=== PATIENT | female | born 1945 | race Caucasian/White ===

== ENCOUNTER 2016-08-12 16:22 | Inpatient (IN) ==
[2016-08-12] MEDS ORDERED: MEPERIDINE 25 MG/1 ML VIAL IV PRN (16:42)
[2016-08-12] MEDS ORDERED: oxyCODONE/ACETAMINOPHEN 5-325 MG TABLET PO PRN (16:50)
[2016-08-12] MEDS: DEXTROSE 5% LACTATED RINGERS 1,000 ML IV SCH (18:03)
[2016-08-12 18:30] LABS: Basophils % 0.1 % (0.0-0.8); Hematocrit 36.4 VOL% (35.7-47.0); Hemoglobin 12.6 GM/DL (12.0-16.0); Immature Granulocytes % 1.1 %; Immature Granulocytes Absolute 0.17 #; Lymphocytes # 0.8 10*3/uL (1.4-4.0); Lymphocytes % 5.1 % (21.3-54.2); Mean Corpuscular HGB Conc 34.6 GM/DL (32-36); Mean Corpuscular Hemoglobin 33 PG (27-34); Mean Platelet Volume 10.5 FL (9.6-12.0); Monocytes # 0.8 10*3/uL (0.11-0.8); Monocytes % 5.3 % (1.7-12.7); Neutrophils # 13.4 10*3/uL (1.4-7.4); Neutrophils % 88.4 % (38.7-73.9); Platelet Count 186 T/CUMM (130-400); Red Blood Count 3.79 MC/CUMM (3.8-5.5); Red Cell Distribution Width 12.2 % (9.3-17.3); White Blood Count 15.2 T/CUMM (4-12)
[2016-08-12 18:53] LABS: Albumin 3.5 G/DL (3.4-5.0); Bilirubin,Total 0.4 MG/DL (0.2-1.0); Calcium 9.1 MG/DL (8.5-10.1); Osmolality,Calculated 276.1 MOS/KG (273-304); Potassium 4.3 MMOL/L (3.5-5.1); Total Protein 6.4 G/DL (6.4-8.3)
--- NOTE | 2016-08-12 19:12 | General Surgery Consult Note ---
Assessment and Plan - Time spent with patient Time spent with patient: Less than 30 minutes (1) Abscess of right genital labia Status: Acute Assessment and plan: Impression: 1. Right labial abscess 2. Cellulitis of the pubis secondary to 1 Plan: 1. Will add a couple of antibiotics to her at this time 2. Plan to take her to surgery tomorrow for drainage. Current Visit: Yes History of Present Illness Chief complaint: Labial abscess History of present illness: Ms. Vizcaino is a 70 year old female white who is not a diabetic and in general pretty good health who on Friday begin to develop some Mani for swelling in the right labial area. Is gotten progressively worse and now spreads up onto the pubis with some cellulitis present at this time. Marked swelling of the right labial with some tenderness in that area. Etiology of this unclear she does not recall any unusual stresses in this area of this dysuria or soiling going on at this time. She cannot relate this to an insect bite or any other cause at this time. At this point will go ahead and get her on some IV antibiotics planned regular surgery tomorrow and try to get this opened and drained to get this under control. Home Medications Medication Instructions Recorded Confirmed Type Losartan [Cozaar] 100 mg PO DAILY 08/12/16 08/12/16 History Lovastatin 20 mg PO DAILY 08/12/16 08/12/16 History cephALEXin [Cephalexin] 500 mg PO Q12HR 08/12/16 08/12/16 History prednisoLONE TAB [prednisoLONE Tab] 20 mg PO DAILY 08/12/16 08/12/16 History Allergies Allergy/AdvReac Type Severity Reaction Status Date / Time No Known Allergies Allergy Verified 08/12/16 16:33 Medical,Surgical,& Family Hx - Medical History Cardio: History of: Hypertension Neurology: History of: Migraine Endocrine: History of: Dyslipidemia, Thyroid Disorder Respiratory: History of: Pneumonia Musculoskeletal: History of: Musculoskeletal Problems (OA) - Surgical History HEENT Surgeries: Surgical HX of: Eye Surgery (right cataract removal), Tonsilectomy & Adenoidectomy Abdominal Surgeries: Surgical HX of: Colonoscopy, EGD Reproductive Surgeries: Surgical HX of;: Section, Hysterectomy Orthopedic Surgeries: Surgical HX of;: Total Knee Replacement (Left) - Family History Family History: Reports;: Family Cancer (sister-breast/ovarian,grandmother-colon ,), Family Diabetes (dad), Family Heart Disease (grandmother), Family Hypertension, Family Psychiatric Problems (mom-bipolar) - Social History Smoking Status: Never smoker Frequency of Alcohol Use: None Type of Drug Use: None 12 point system: reviewed and no additional remarkable complaints except as stated Exam - Constitutional Vitals: Period Temp Pulse Resp BP Sys/Brunner Pulse Ox Last 24 Hr 97.2 F 84 20 128/70 98 General appearance: mild distress - Head Head exam: Present: normal inspection - ENT ENT exam: Present: normal exam - Neck Neck exam: Present: normal inspection - Respiratory Respiratory exam: Present: clear to auscultation bilaterally, rales - Cardiovascular Cardiovascular exam: Present: RRR - GI/Abdominal GI/Abdominal exam: Present: hypoactive bowel sounds, soft, other (Right labial area with swelling present and tenderness and erythematous changes of bone to the pubis). Absent: distended, tenderness - Extremities Exam Extremities exam: Present: normal inspection - Back Exam Back exam: Present: normal inspection - Neurological Exam Neurological exam: Present: alert, oriented X3, CN II-XII intact - Skin Skin exam: Present: normal color, erythema (Of the pubis) Quality Measures - VTE Contraindication to Pharmacological VTE Prophylaxis: High Risk of Bleeding Results - Labs CBC & BMP: 08/12/16 18:13 08/12/16 18:13 Lab Results: I have reviewed the past 24 hour labs
[2016-08-12 19:18] LABS: Apearance,Urine Slightly Hazy (Clear); Bacteria,Urine Occasional /HPF (Few); Bilirubin,Urine Negative (Negative); Blood, Urine Small mg/dL (Negative); Glucose,Urine (UA) Negative (Negative); Ketones,Urine Negative (Negative); Nitrite,Urine Negative (Negative); Protein,Urine 30 MG/DL; RBC,Urine 2 /HPF (0-4); Squamous Epithelial Cell,Urine Occasional /HPF (0-10); Transitional Epi Cells,Urine Occasional /HPF (<1); Urine Color Yellow (Yellow); Urine Specific Gravity 1.019 (1.001-1.035); Urine Urobilinogen < 2.0 EU/DL (0.2-1.0); WBC,Urine 15 /HPF (0-6)
--- NOTE | 2016-08-12 19:31 | History and Physical Update ---
History and Physical Update - History and Physical H&P was reviewed, the patient examined and there: are no changes in the patients condition since last H&P was completed. - Dictation Physical: refer to scanned H&P - Physical Exam Mental Status: alert and oriented Heart: regular rate and rhythm Lung: clear to auscultation Abdomen: within normal limits Vitals: within normal limits History and Physical Changes: Pt admitted directly from the office with right labial abscess with extension of involvement of cellulitis and possible abscess into right lower abdomen for total area of involvement of ~13 cm diameter superiorly to inferiorly and ~9 cm diameter.
[2016-08-12] MEDS: metroNIDAZOLE INJ 500 MG in PREMIX 1 EACH IV SCH (19:49)
--- NOTE | 2016-08-12 21:09 | XRay Report ---
XR chest 1V portable Indication: Respiratory preoperative evaluation Comparison: None available Findings: The heart and mediastinum are normal in size and configuration. The pulmonary vascularity is normal in caliber. Lung volumes are increased with prominent bronchial markings. No lung infiltrates, effusions, pneumothorax or other abnormality is demonstrated. Impression: Chronic lung changes. No acute process. PROCEDURE INTERPRETED AT [facility] DEPARTMENT OF RADIOLOGY Final Report Signed by: Dr. Boris Rachel
[2016-08-12] MEDS: PIPERACILLIN/TAZOBACTAM 3,375 MG in SODIUM CHLORIDE 0.9% 100 ML IV SCH (21:27)
[2016-08-13] MEDS: metroNIDAZOLE INJ 500 MG in PREMIX 1 EACH IV SCH ×4 (01:44→22:35)
[2016-08-13] MEDS: PIPERACILLIN/TAZOBACTAM 3,375 MG in SODIUM CHLORIDE 0.9% 100 ML IV SCH ×4 (05:04→23:39)
[2016-08-13] MEDS ORDERED: BUPIVACAINE MPF 0.25% /EPI 30 ML VIAL ONE (06:45)
[2016-08-13] MEDS ORDERED: ceFAZolin 2,000 MG in SODIUM CHLORIDE 0.9% 100 ML IV ONE (07:00)
[2016-08-13 07:13] LABS: Basophils % 0.2 % (0.0-0.8); Eosinophils # 0.1 10*3/uL (0.0-0.87); Eosinophils % 0.5 % (0.00-10.9); Hematocrit 32.5 VOL% (35.7-47.0); Immature Granulocytes % 0.5 %; Immature Granulocytes Absolute 0.05 #; Lymphocytes # 1.6 10*3/uL (1.4-4.0); Mean Corpuscular HGB Conc 33.8 GM/DL (32-36); Mean Corpuscular Hemoglobin 32 PG (27-34); Mean Corpuscular Volume 94.2 FL (87-102); Mean Platelet Volume 10.7 FL (9.6-12.0); Monocytes # 0.7 10*3/uL (0.11-0.8); Monocytes % 7.1 % (1.7-12.7); Neutrophils # 7.5 10*3/uL (1.4-7.4); Neutrophils % 75.7 % (38.7-73.9); Platelet Count 159 T/CUMM (130-400); Red Blood Count 3.45 MC/CUMM (3.8-5.5); Red Cell Distribution Width 12.2 % (9.3-17.3); White Blood Count 9.9 T/CUMM (4-12)
[2016-08-13] MEDS ORDERED: ceFAZolin 1,000 MG VIAL ONE (07:15)
[2016-08-13] MEDS ORDERED: KETOROLAC 30 MG/1 ML VIAL ONE (07:23)
[2016-08-13] MEDS ORDERED: PROPOFOL 200 MG/20 ML VIAL IV ONE (07:23)
[2016-08-13] MEDS ORDERED: ONDANSETRON 4 MG/2 ML VIAL ONE (07:23)
[2016-08-13] MEDS ORDERED: LIDOCAINE 1% 5 ML VIAL ONE (07:23)
--- NOTE | 2016-08-13 07:44 | EKG Report ---
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
[2016-08-13] MEDS ORDERED: HYDROmorphone 2 MG/1 ML VIAL IV PRN (08:17)
[2016-08-13] MEDS ORDERED: ONDANSETRON 4 MG/2 ML VIAL IV PRN (08:17)
[2016-08-13] MEDS ORDERED: ACETAMINOPHEN 325 MG TABLET PO PRN (08:17)
[2016-08-13] MEDS ORDERED: BISACODYL 5 MG TABLET PO PRN (08:17)
--- NOTE | 2016-08-13 08:31 | Operative Note ---
Date of procedure: 08/13/16 Pre-op diagnosis: Right labial abscess Post-op diagnosis: other (Right labial abscess with extension into the suprapubic area) Procedure: Operative note: Preoperative diagnosis: Right labial abscess Postoperative diagnosis: Right labial abscess with abscess extension to the suprapubic area. Procedure: Excisional debridement and drainage of right labial abscess with drainage of suprapubic abscess and placement of drains Surgeon Dr. Davis Account Services Representative Daria Winter, ENG[employer] ACNP Anesthesia was general with local Brief history: 70-year-old white female who developed the onset of some swelling in the right labial area on Friday to progressively got worse and she has a large mass with some erythematous changes on to the suprapubic area. We elected to put her on IV antibiotics bring her surgery this morning for drainage. Procedure: With patient in the supine dorsal lithotomy position prepped and draped in a sterile fashion timeout and antibiotics completed we approach this area of the large swollen labia at this time. I infiltrated around it with some local anesthetic. I then took a knife and made an incision the labia as we went down we encountered some necrotic looking tissue and fatty tissue in this area but not a lot of purulence that we noted. Carefully dissected down through the subtenons tissue and then entered a pocket going towards the suprapubic area. Large amount of drainage in this region that we then cultured aerobically and anaerobically. I then extended the incision superiorly and inferiorly to have get this thing opened as widely as I could. I then begin to debride the necrotic fatty tissue encountering some pockets of purulence into the fatty tissue that we carefully debrided out. Opened it up to like to get a finger into the cavity in the suprapubic region. I elected not to extend the incision into that area like a separate stab wound socket bring a drain through. Once I debrided all the necrotic tissue and taken my cultures at this point I went ahead and used electrocautery to control any bleeding. We then washed and irrigated out the the labia and the cavity. I then placed a through and through Conley drain along with a red rubber catheter was secured with a 4-0 nylon. With those in place then we then packed the wound with the Dakin's wet Kerlix along with a bulky dressing. We then took the patient recovery room. Estimated blood loss 20 cc Sponge count correct 2 Drains half inch Raven and a red rubber catheter Complications none Condition stable satisfactory Anesthesia: GETA, local (0.25% Marcaine with epinephrine mixed [id number] 1% Xylocaine plain) Surgeon / Physician: Ze Davis Account Services Representative: Daria Winter Estimated blood loss: other (20 cc) Specimens: other (Tissue and fluid for culture) Condition: stable Disposition: floor Results - Labs CBC & BMP: 08/13/16 06:56 08/12/16 18:13 Discharge Plan - Discharge Medications No Action prednisoLONE TAB [prednisoLONE Tab] 20 mg PO DAILY Lovastatin 20 mg PO DAILY Losartan [Cozaar] 100 mg PO DAILY cephALEXin [Cephalexin] 500 mg PO Q12HR - Follow Up or Referral - Forms/Instructions
[2016-08-13] MEDS ORDERED: MIDAZOLAM 2 MG/2 ML VIAL ONE (08:56)
[2016-08-13] MEDS ORDERED: ACETAMINOPHEN 1,000 MG/100 ML VIAL IV ONE (08:56)
[2016-08-13] MEDS ORDERED: fentaNYL 100 MCG/2 ML VIAL ONE (08:56)
[2016-08-13] MEDS ORDERED: predniSONE 20 MG TABLET PO SCH (09:00)
[2016-08-13] MEDS: LOVASTATIN 20 MG TABLET PO SCH (09:19)
[2016-08-13] MEDS: LOSARTAN 50 MG TABLET PO SCH (09:19)
[2016-08-13] MEDS: PANTOPRAZOLE 40 MG TABLET PO SCH (09:20)
[2016-08-13] MEDS: DEXTROSE 5% LACTATED RINGERS 1,000 ML IV SCH (09:33)
--- NOTE | 2016-08-13 09:51 | Physician Query Form ---
CLICK EDIT DOCUMENT TO SELECT QUERY ANSWER --> OK --> SIGN Gilda Nayak RN, CCDS Certified Clinical Food And Beverage Analyst W) [phone] (f) [phone] [email or web address] PROVIDERS: Make your selection(s) from the choices in EACH section by typing an "x" and enter comments in the comment section. Please use your independent medical judgment in providing your response. This request does not imply that any particular answer is desired or expected. CLINICAL INDICATORS: (Providers should not edit this section) "Excisional debridement and drainage of right labial abscess with drainage of suprapubic abscess and placement of drains" Please provide further clarification regarding debridement: DEPTH: ( x) Skin (x ) Subcutaneous tissue ( ) Fascia ( ) Muscle ( ) Joint ( ) Tendon ( ) Bone ( ) Bursa & ligaments ( ) Nail ( ) Other, please specify: ( ) Clinically unable to determine REMOVED: ( x) Necrotic tissue ( ) Gangrenous tissue ( ) Slough ( ) Other, please specify: COMMENTS: PLEASE ALSO DOCUMENT RESPONSE IN PROGRESS NOTES AND/OR DISCHARGE SUMMARY Use of terms such as suspected, likely, or probable (associated with a specific diagnosis that is being evaluated, monitored, or treated as if it exists) are acceptable and can be restated in the discharge summary if not ruled out. MTDD
[2016-08-13 09:52] LABS: PT Patient Result 10.4 SECS; Partial Thromboplastin Time 27.4 SECS (0-40)
[2016-08-13 15:27] LABS: Hematocrit 31.9 VOL% (35.7-47.0)
[2016-08-13] MEDS: ceFAZolin 2,000 MG in PREMIX 1 EACH IV SCH (21:49)
[2016-08-13] MEDS: oxyCODONE/ACETAMINOPHEN 5-325 MG TABLET PO PRN (21:58)
[2016-08-14] MEDS: metroNIDAZOLE INJ 500 MG in PREMIX 1 EACH IV SCH ×4 (03:29→21:16)
[2016-08-14] MEDS: ceFAZolin 2,000 MG in PREMIX 1 EACH IV SCH (04:45)
[2016-08-14 05:05] LABS: Basophils % 0.5 % (0.0-0.8); Eosinophils # 0.1 10*3/uL (0.0-0.87); Hematocrit 32.4 VOL% (35.7-47.0); Hemoglobin 10.8 GM/DL (12.0-16.0); Immature Granulocytes % 0.3 %; Immature Granulocytes Absolute 0.02 #; Lymphocytes # 1.4 10*3/uL (1.4-4.0); Lymphocytes % 24.5 % (21.3-54.2); Mean Corpuscular HGB Conc 33.3 GM/DL (32-36); Mean Corpuscular Hemoglobin 33 PG (27-34); Mean Corpuscular Volume 98.2 FL (87-102); Mean Platelet Volume 10.6 FL (9.6-12.0); Monocytes # 0.5 10*3/uL (0.11-0.8); Monocytes % 8.4 % (1.7-12.7); Neutrophils # 3.8 10*3/uL (1.4-7.4); Neutrophils % 65.3 % (38.7-73.9); Platelet Count 161 T/CUMM (130-400); Red Cell Distribution Width 12.3 % (9.3-17.3); White Blood Count 5.8 T/CUMM (4-12)
[2016-08-14 05:34] LABS: Calcium 8.2 MG/DL (8.5-10.1); Osmolality,Calculated 284.1 MOS/KG (273-304); Potassium 4.3 MMOL/L (3.5-5.1)
[2016-08-14] MEDS: PIPERACILLIN/TAZOBACTAM 3,375 MG in SODIUM CHLORIDE 0.9% 100 ML IV SCH ×3 (05:54→22:33)
--- NOTE | 2016-08-14 09:18 | General Surgery Progress Note ---
Assessment and Plan (1) Abscess of right genital labia Status: Acute Assessment and plan: Impression: 1. Right labial abscess 2. Cellulitis of the pubis secondary to 1 Plan: 1. Will add a couple of antibiotics to her at this time 2. Plan to take her to surgery tomorrow for drainage. 08/14/2016 Patient is postop today for 1 day and we go to be starting wound care at this time. This is in a very difficult place to take care of & be a good deal of discomfort with each dressing change. We got irrigation lined up to get this process under control and get it cleaned so that we do not have to extend these incisions. Cultures are pending at this time. Patient lives alone and has no support so we are trying to arrange someplace for to go where she can get continued wound care at this point until we can get this healed up enough that we can simplify the care. Current Visit: Yes Subjective Patient reports: Present: no new complaints, pain is less, tolerating a regular diet, afebrile Exam - Constitutional Vitals: Period Temp Pulse Resp BP Sys/Brunner Pulse Ox Last 24 Hr 97.1 F-98.1 F 58-70 17-20 99-153/46-70 94-98 General appearance: mild distress - Head Head exam: Present: normal inspection - ENT ENT exam: Present: normal exam - Neck Neck exam: Present: normal inspection - Respiratory Respiratory exam: Present: rales - Cardiovascular Cardiovascular exam: Present: RRR - GI/Abdominal GI/Abdominal exam: Present: hypoactive bowel sounds, soft, other (The abdominal area shows less erythema around the pubic region drains are in place at this time and we got. Wound care beginning today.). Absent: tenderness - Extremities Exam Extremities exam: Present: normal inspection - Neurological Exam Neurological exam: Present: alert, oriented X3, CN II-XII intact - Skin Skin exam: Present: normal color, warm Results - Labs CBC & BMP: 08/14/16 04:43 08/14/16 04:43 Lab Results: I have reviewed the past 24 hour labs Quality Measures - VTE Contraindication to Pharmacological VTE Prophylaxis: High Risk of Bleeding
[2016-08-14] MEDS: LOSARTAN 50 MG TABLET PO SCH (11:09)
[2016-08-14] MEDS: LOVASTATIN 20 MG TABLET PO SCH (11:11)
[2016-08-14] MEDS: PANTOPRAZOLE 40 MG TABLET PO SCH (11:11)
[2016-08-14] MEDS: ENOXAPARIN 40 MG/0.4 ML SYRINGE SUBCUT SCH (11:11)
[2016-08-14] MEDS: DEXTROSE 5% LACTATED RINGERS 1,000 ML IV SCH ×2 (15:00→21:21)
[2016-08-15] MEDS: PIPERACILLIN/TAZOBACTAM 3,375 MG in SODIUM CHLORIDE 0.9% 100 ML IV SCH ×3 (00:25→17:45)
[2016-08-15] MEDS: metroNIDAZOLE INJ 500 MG in PREMIX 1 EACH IV SCH ×4 (04:50→22:40)
[2016-08-15] MEDS: PANTOPRAZOLE 40 MG TABLET PO SCH (09:26)
[2016-08-15] MEDS: LOSARTAN 50 MG TABLET PO SCH (09:26)
[2016-08-15] MEDS: SODIUM HYPOCHLORITE 0.25% IRRIG 473 ML BOTTLE TOP SCH ×2 (09:29→22:11)
[2016-08-15] MEDS: ENOXAPARIN 40 MG/0.4 ML SYRINGE SUBCUT SCH (09:31)
[2016-08-15] MEDS: LOVASTATIN 20 MG TABLET PO SCH (09:31)
--- NOTE | 2016-08-15 15:48 | Case Mgmt Physician Query Form ---
TB Signs and Symptoms Screening ([place]) INSTRUCTIONS: To be completed annually on residents/staff with a significant Tuberculin Skin Test (TST) upon admission/hire or a prior significant TST. To be completed on all staff at hire. Please respond to each listed symptom with an (X) in either the "YES" or "NO" box. Do you currently have any of the following symptoms: YES NO ( ) (x ) A cough If yes, is it: ( ) Productive ( ) Non- productive ( ) (x ) Hemoptysis (spitting up blood) ( ) (x ) Chest pains ( ) x(x ) Weight Loss ( ) (x ) Fever ( ) (x) Night Sweats ( ) x(x ) Weakness ( ) (x ) Loss of Appetite ( ) (x ) Difficulty Breathing If you answered YES" to any of the above questions, how long have symptoms been present? Comments: MARTHA
[2016-08-15] MEDS ORDERED: TUBERCULIN SKIN TEST 0.1 ML SYRINGE INTRADERM ONE (16:30)
--- NOTE | 2016-08-15 18:26 | General Surgery Progress Note ---
Assessment and Plan - Time spent with patient Time spent with patient: Less than 30 minutes (1) Abscess of right genital labia Status: Acute Assessment and plan: Impression: 1. Right labial abscess 2. Cellulitis of the pubis secondary to 1 Plan: 1. Will add a couple of antibiotics to her at this time 2. Plan to take her to surgery tomorrow for drainage. 08/14/2016 Patient is postop today for 1 day and we go to be starting wound care at this time. This is in a very difficult place to take care of & be a good deal of discomfort with each dressing change. We got irrigation lined up to get this process under control and get it cleaned so that we do not have to extend these incisions. Cultures are pending at this time. Patient lives alone and has no support so we are trying to arrange someplace for to go where she can get continued wound care at this point until we can get this healed up enough that we can simplify the care. 08/15/2016. Patient is doing fairly well beginning to handle the dressings little bit better. The wounds are fairly clean the erythematous changes on the pubis is somewhat better. Cultures are back and this is a staff and is not sensitive to the Zosyn so I will change him over to the Cleocin had a little Bactrim to home. Trying to get her somewhere where she can get some help with the wound care until he gets worried simpler to deal with as time goes on. Current Visit: Yes Subjective Patient reports: Present: feels better, pain is less, afebrile Exam - Constitutional Vitals: Period Temp Pulse Resp BP Sys/Brunner Pulse Ox Last 24 Hr 96.7 F-98.4 F 71-90 18-20 139-160/66-91 94-100 General appearance: mild distress - Head Head exam: Present: normal inspection - ENT ENT exam: Present: normal exam - Neck Neck exam: Present: normal inspection - Respiratory Respiratory exam: Present: rales - Cardiovascular Cardiovascular exam: Present: RRR - GI/Abdominal GI/Abdominal exam: Present: normal bowel sounds, soft, other (The area of the right pubic wound is fairly clean at this point with the erythematous changes pretty much resolved on the anterior abdominal wall of the pubis. Drain is still in place) - Extremities Exam Extremities exam: Present: normal inspection - Neurological Exam Neurological exam: Present: alert, oriented X3, CN II-XII intact - Skin Skin exam: Present: normal color, warm, dry Results - Labs CBC & BMP: 08/14/16 04:43 08/14/16 04:43 Lab Results: I have reviewed the past 24 hour labs Quality Measures - VTE Contraindication to Pharmacological VTE Prophylaxis: High Risk of Bleeding
[2016-08-15] MEDS: SULFAMETHOX/TRIMETHOPRIM 800-160 MG TABLET PO SCH (22:03)
[2016-08-15] MEDS: CLINDAMYCIN INJ 600 MG in PREMIX 1 EACH IV SCH (22:04)
[2016-08-16] MEDS: metroNIDAZOLE INJ 500 MG in PREMIX 1 EACH IV SCH ×4 (03:31→20:27)
[2016-08-16] MEDS: CLINDAMYCIN INJ 600 MG in PREMIX 1 EACH IV SCH ×4 (06:48→23:50)
[2016-08-16] MEDS: SULFAMETHOX/TRIMETHOPRIM 800-160 MG TABLET PO SCH ×2 (09:19→20:27)
[2016-08-16] MEDS: DEXTROSE 5% LACTATED RINGERS 1,000 ML IV SCH ×2 (09:19→20:26)
[2016-08-16] MEDS: ENOXAPARIN 40 MG/0.4 ML SYRINGE SUBCUT SCH (09:19)
[2016-08-16] MEDS: PANTOPRAZOLE 40 MG TABLET PO SCH (09:19)
[2016-08-16] MEDS: LOSARTAN 50 MG TABLET PO SCH (09:19)
[2016-08-16] MEDS: LOVASTATIN 20 MG TABLET PO SCH (09:19)
[2016-08-16] MEDS: SODIUM HYPOCHLORITE 0.25% IRRIG 473 ML BOTTLE TOP SCH ×2 (09:20→20:27)
--- NOTE | 2016-08-16 09:29 | General Surgery Progress Note ---
Assessment and Plan - Time spent with patient Time spent with patient: Less than 30 minutes (1) Abscess of right genital labia Status: Acute Assessment and plan: Impression: 1. Right labial abscess 2. Cellulitis of the pubis secondary to 1 Plan: 1. Will add a couple of antibiotics to her at this time 2. Plan to take her to surgery tomorrow for drainage. 08/14/2016 Patient is postop today for 1 day and we go to be starting wound care at this time. This is in a very difficult place to take care of & be a good deal of discomfort with each dressing change. We got irrigation lined up to get this process under control and get it cleaned so that we do not have to extend these incisions. Cultures are pending at this time. Patient lives alone and has no support so we are trying to arrange someplace for to go where she can get continued wound care at this point until we can get this healed up enough that we can simplify the care. 08/15/2016. Patient is doing fairly well beginning to handle the dressings little bit better. The wounds are fairly clean the erythematous changes on the pubis is somewhat better. Cultures are back and this is a staff and is not sensitive to the Zosyn so I will change him over to the Cleocin had a little Bactrim to home. Trying to get her somewhere where she can get some help with the wound care until he gets worried simpler to deal with as time goes on. 08/16/2016 Patient is afebrile wounds are looking better still little bit of redness on the suprapubic area with a little bit of swelling there but nothing to suggest any deep space infection present. She is struggling because of the difficulty of wound care in this particular area. It is complicated to deal with them were having trouble getting her to a place and can manage the wounds as well as help her with the wound care. After long discussion with the patient one option we might have since we have had a good course of antibiotics is to look at Friday to possibly take her to surgery to close the labial area possibly a different drain into the suprapubic area and attempt to drain this a little bit more effectively and possibly simplify the wound care. She seems to favor that because she feels like it might get her out where she can manage at home since she does live alone. We will go ahead and plan to set her up for surgery on Friday. Current Visit: Yes Subjective Patient reports: Present: feels better, afebrile Exam - Constitutional Vitals: Period Temp Pulse Resp BP Sys/Brunner Pulse Ox Last 24 Hr 96.7 F-98.7 F 54-81 19-20 136-154/58-76 94-99 General appearance: mild distress - Head Head exam: Present: normal inspection - ENT ENT exam: Present: normal exam - Neck Neck exam: Present: normal inspection - Respiratory Respiratory exam: Present: clear to auscultation bilaterally - Cardiovascular Cardiovascular exam: Present: RRR - GI/Abdominal GI/Abdominal exam: Present: normal bowel sounds, soft, other (The labia wound looks clean with some good granulating tissue present. The area on the suprapubic area is less swollen little bit of erythematous still present) - Extremities Exam Extremities exam: Present: normal inspection - Neurological Exam Neurological exam: Present: alert, oriented X3, CN II-XII intact - Skin Skin exam: Present: normal color, warm, dry Results - Labs CBC & BMP: 08/14/16 04:43 08/14/16 04:43 Lab Results: I have reviewed the past 24 hour labs Quality Measures - VTE Contraindication to Pharmacological VTE Prophylaxis: High Risk of Bleeding
[2016-08-17] MEDS: oxyCODONE/ACETAMINOPHEN 5-325 MG TABLET PO PRN (02:00)
[2016-08-17] MEDS: metroNIDAZOLE INJ 500 MG in PREMIX 1 EACH IV SCH ×4 (03:40→21:22)
[2016-08-17] MEDS: CLINDAMYCIN INJ 600 MG in PREMIX 1 EACH IV SCH ×4 (05:37→23:25)
[2016-08-17] MEDS: ENOXAPARIN 40 MG/0.4 ML SYRINGE SUBCUT SCH (09:09)
[2016-08-17] MEDS: LOVASTATIN 20 MG TABLET PO SCH (09:10)
[2016-08-17] MEDS: PANTOPRAZOLE 40 MG TABLET PO SCH (09:10)
[2016-08-17] MEDS: LOSARTAN 50 MG TABLET PO SCH (09:10)
[2016-08-17] MEDS: SULFAMETHOX/TRIMETHOPRIM 800-160 MG TABLET PO SCH ×2 (09:10→21:22)
[2016-08-17] MEDS: DEXTROSE 5% LACTATED RINGERS 1,000 ML IV SCH ×2 (09:11→18:17)
[2016-08-17] MEDS: SODIUM HYPOCHLORITE 0.25% IRRIG 473 ML BOTTLE TOP SCH ×2 (09:11→21:25)
--- NOTE | 2016-08-17 11:05 | General Surgery Progress Note ---
Assessment and Plan (1) Abscess of right genital labia Status: Acute Assessment and plan: The patient appears to be doing well. Continue antibiotics and wound care. Dr. Davis plans to take the patient back to surgery on Friday for possible wound revision. Current Visit: Yes Subjective Patient reports: Present: no new complaints, feels better, pain is less, tolerating a regular diet, afebrile Exam - Constitutional Vitals: Period Temp Pulse Resp BP Sys/Brunner Pulse Ox Last 24 Hr 97.5 F-98.5 F 45-62 18-20 119-142/56-75 93-97 General appearance: no acute distress, over weight - Head Head exam: Present: normal inspection, normocephalic - Eye Eye exam: Present: EOMI Pupils: Present: MARJORIE - ENT ENT exam: Present: normal exam Mouth exam: Present: normal external inspection, normal voice - Neck Neck exam: Present: normal inspection, trachea midline - Respiratory Respiratory exam: Present: clear to auscultation bilaterally. Absent: accessory muscle use, chest wall tenderness - Cardiovascular Cardiovascular exam: Present: RRR. Absent: systolic murmur, tachycardia - GI/Abdominal GI/Abdominal exam: Present: normal bowel sounds, soft. Absent: tenderness, rebound - Extremities Exam Extremities exam: Present: other (There is a right labial wound with Martin drain and red rubber catheter sewn in. It is clean with minimal surrounding cellulitis but no purulence or necrotic tissue.) - Back Exam Back exam: Present: normal inspection - Neurological Exam Neurological exam: Present: alert, oriented X3 Speech: Present: normal - Skin Skin exam: Present: normal color, warm Results - Labs CBC & BMP: 08/14/16 04:43 08/14/16 04:43 Quality Measures - VTE Contraindication to Pharmacological VTE Prophylaxis: High Risk of Bleeding
[2016-08-18] MEDS: metroNIDAZOLE INJ 500 MG in PREMIX 1 EACH IV SCH ×4 (02:38→20:19)
[2016-08-18 04:31] LABS: Basophils % 0.7 % (0.0-0.8); Eosinophils # 0.2 10*3/uL (0.0-0.87); Hematocrit 31.7 VOL% (35.7-47.0); Hemoglobin 10.7 GM/DL (12.0-16.0); Immature Granulocytes Absolute 0.16 #; Lymphocytes # 1.6 10*3/uL (1.4-4.0); Mean Corpuscular HGB Conc 33.8 GM/DL (32-36); Mean Corpuscular Hemoglobin 32 PG (27-34); Mean Corpuscular Volume 95.5 FL (87-102); Mean Platelet Volume 10.1 FL (9.6-12.0); Monocytes # 0.5 10*3/uL (0.11-0.8); Monocytes % 9.1 % (1.7-12.7); Neutrophils % 55.2 % (38.7-73.9); Platelet Count 197 T/CUMM (130-400); Red Blood Count 3.32 MC/CUMM (3.8-5.5); Red Cell Distribution Width 12.2 % (9.3-17.3); White Blood Count 5.4 T/CUMM (4-12)
[2016-08-18 04:56] LABS: Calcium 8.9 MG/DL (8.5-10.1); Osmolality,Calculated 274.5 MOS/KG (273-304); Potassium 4.1 MMOL/L (3.5-5.1)
[2016-08-18] MEDS: CLINDAMYCIN INJ 600 MG in PREMIX 1 EACH IV SCH ×4 (05:19→22:06)
[2016-08-18] MEDS: DEXTROSE 5% LACTATED RINGERS 1,000 ML IV SCH ×2 (05:24→16:29)
--- NOTE | 2016-08-18 08:53 | General Surgery Progress Note ---
Assessment and Plan (1) Abscess of right genital labia Status: Acute Assessment and plan: The patient appears to be doing well. Continue antibiotics and wound care. Dr. Davis plans to take the patient back to surgery tomorrow for possible wound revision. Will make her NPO p MN. Current Visit: Yes Subjective Patient reports: Present: no new complaints, feels better, afebrile Exam - Constitutional Vitals: Period Temp Pulse Resp BP Sys/Rbunner Pulse Ox Last 24 Hr 97.5 F-98.6 F 52-73 18-20 120-146/60-82 93-100 General appearance: no acute distress, over weight - Head Head exam: Present: normal inspection, normocephalic - Eye Eye exam: Present: EOMI Pupils: Present: MARJORIE - ENT ENT exam: Present: normal exam Mouth exam: Present: normal external inspection, normal voice - Neck Neck exam: Present: normal inspection, trachea midline - Respiratory Respiratory exam: Present: clear to auscultation bilaterally. Absent: accessory muscle use, chest wall tenderness - Cardiovascular Cardiovascular exam: Present: RRR. Absent: systolic murmur, tachycardia - GI/Abdominal GI/Abdominal exam: Present: normal bowel sounds, soft. Absent: tenderness, rebound - Anus/Rectum Anus/Rectum: other (The right labial wound is clean with no undrained infection or necrotic tissue) - Extremities Exam Extremities exam: Present: normal inspection, normal capillary refill - Back Exam Back exam: Present: normal inspection - Neurological Exam Neurological exam: Present: alert, oriented X3 Speech: Present: normal - Skin Skin exam: Present: normal color, warm Results - Labs CBC & BMP: 08/18/16 03:55 08/18/16 03:55 Quality Measures - VTE Contraindication to Pharmacological VTE Prophylaxis: High Risk of Bleeding
[2016-08-18] MEDS: SULFAMETHOX/TRIMETHOPRIM 800-160 MG TABLET PO SCH ×2 (08:57→20:19)
[2016-08-18] MEDS: PANTOPRAZOLE 40 MG TABLET PO SCH (08:57)
[2016-08-18] MEDS: LOSARTAN 50 MG TABLET PO SCH (08:57)
[2016-08-18] MEDS: LOVASTATIN 20 MG TABLET PO SCH (08:58)
[2016-08-18] MEDS: SODIUM HYPOCHLORITE 0.25% IRRIG 473 ML BOTTLE TOP SCH ×2 (09:02→20:25)
[2016-08-19] MEDS: DEXTROSE 5% LACTATED RINGERS 1,000 ML IV SCH ×2 (00:53→14:57)
[2016-08-19] MEDS: metroNIDAZOLE INJ 500 MG in PREMIX 1 EACH IV SCH ×4 (04:07→20:41)
[2016-08-19] MEDS: CLINDAMYCIN INJ 600 MG in PREMIX 1 EACH IV SCH ×4 (05:06→22:35)
[2016-08-19] MEDS ORDERED: ceFAZolin 2,000 MG in PREMIX 1 EACH IV ONE (07:00)
[2016-08-19] MEDS ORDERED: BUPIVACAINE 0.25% 50 ML VIAL ONE (08:56)
[2016-08-19] MEDS ORDERED: LIDOCAINE 2% 5 ML VIAL ONE (09:03)
[2016-08-19] MEDS ORDERED: ONDANSETRON 4 MG/2 ML VIAL ONE ×2 (09:03→10:27)
[2016-08-19] MEDS ORDERED: PROPOFOL 200 MG/20 ML VIAL IV ONE (09:03)
--- NOTE | 2016-08-19 10:03 | Operative Note ---
Date of procedure: 08/19/16 Pre-op diagnosis: Labial and suprapubic wound secondary to an abscess Post-op diagnosis: same Procedure: Operative note: Preoperative diagnosis: 1. Open Right labial and suprapubic wound with drains secondary to an abscess Postoperative diagnosis: Same Procedure: Excisional debridement of wounds of the right labial and right suprapubic area with placement of drain and delayed layered closure Surgeon Dr. Davis Insulator Tester Daria Winter, CR[employer]AM LOADER ACNP Anesthesia was general with local Brief history: 70-year-old white female who came in with a right labial abscess that extended on to the suprapubic area with cellulitis and a small cavity present there. These were drained successfully and cultures were back and she is on good antibiotics at this time. Unfortunately she lives alone has very little help and was not been able to get her good care associated with this and she could manage effectively. We cannot get her to a facility that would help her deal with this wound care because of insurance so elected at this point with a wound looking as good as he is to bring her back at this time for a closure to see if we can improve the healing and speeded up to some degree. Procedure: With patient in the supine dorsal lithotomy position prepped and draped in a sterile fashion timeout and antibiotics completed approaches area of the right labial wound and anterior abdominal wound. We had removed all the drains prior to this. The labia wound was 5 x 1.5 x 3.5 and the anterior abdominal wound was 1.5 x 1 x [address] cm[address] With that in place and some local applied to the wound bed at this time then we washed irrigated with saline solution. I begin to debride labial wound area in order to get some tissue for cultures and just clean up the base completely. Once that was in good shape then I took a knife to the anterior suprapubic wound and excise the skin edges and then debrided subtenons tissue. Bleeding was controlled light cauterization with the wound bed looking pretty clean I went ahead and irrigated the wound bed completely at this time with saline solution. We then made a separate stab wound pulled a #7 Terry- Small drain in through both wounds and laid it into the labial area. With that pretty well completed and looking clean then we closed subtenons tissue with 3- 0 Vicryl and then we closed the skin of both wounds with interrupted 4-0 nylon. Secured the drain it with 4-0 nylon. Once that was in place and a dressing was applied and the patient taken to recovery room. Estimated blood loss 10 cc Sponge count correct 2 Drains one #7 Terry-Small Complications none Condition stable satisfactory Anesthesia: GETA, local (0.25% Marcaine with epinephrine mixed [id number] 1% Xylocaine plain) Surgeon / Physician: Ze Davis Insulator Tester: Daria Winter Estimated blood loss: other (10 cc) Specimens: other (Tissue for culture) Condition: stable Disposition: floor Results - Labs CBC & BMP: 08/18/16 03:55 08/18/16 03:55 Discharge Plan - Discharge Medications No Action prednisoLONE TAB [prednisoLONE Tab] 20 mg PO DAILY Lovastatin 20 mg PO DAILY Losartan [Cozaar] 100 mg PO DAILY cephALEXin [Cephalexin] 500 mg PO Q12HR - Follow Up or Referral - Forms/Instructions
[2016-08-19] MEDS ORDERED: MIDAZOLAM 2 MG/2 ML VIAL ONE (10:13)
[2016-08-19] MEDS ORDERED: LACTATED RINGERS 1,000 ML IV ONE ×2 (10:13→10:14)
[2016-08-19] MEDS ORDERED: fentaNYL 100 MCG/2 ML VIAL ONE (10:13)
[2016-08-19] MEDS ORDERED: SEVOFLURANE 1 UNIT/15 MINUTE INH ONE (10:13)
[2016-08-19] MEDS ORDERED: ONDANSETRON 4 MG/2 ML VIAL IV PRN (10:26)
[2016-08-19] MEDS ORDERED: HYDROmorphone 2 MG/1 ML VIAL IV PRN (10:26)
[2016-08-19] MEDS ORDERED: LACTATED RINGERS 1,000 ML IV SCH (10:30)
[2016-08-19] MEDS: SODIUM HYPOCHLORITE 0.25% IRRIG 473 ML BOTTLE TOP SCH ×2 (12:31→20:42)
[2016-08-19] MEDS: SULFAMETHOX/TRIMETHOPRIM 800-160 MG TABLET PO SCH ×2 (12:55→20:42)
[2016-08-19] MEDS: LOSARTAN 50 MG TABLET PO SCH (12:55)
[2016-08-19] MEDS: PANTOPRAZOLE 40 MG TABLET PO SCH (12:56)
[2016-08-19] MEDS: LOVASTATIN 20 MG TABLET PO SCH (12:56)
--- NOTE | 2016-08-19 13:05 | Anesthesia Post-Op ---
Anesthesia Post OP - Post Ansesthetic Evaluation Patient seen in post op: Yes Resp: within normal limits CV: within normal limits Mental: within normal limits Temp: within normal limits [id number]: within normal limits Nausea and Vomiting: within normal limits Pain: within normal limits
[2016-08-19] MEDS: ceFAZolin 2,000 MG in PREMIX 1 EACH IV SCH (17:15)
[2016-08-19] MEDS: BACITRACIN OINT 0.9 GM PACK TOP SCH (20:42)
[2016-08-19] MEDS: NYSTATIN POWDER 15 GM BOTTLE TOP SCH (22:36)
[2016-08-20] MEDS: ceFAZolin 2,000 MG in PREMIX 1 EACH IV SCH (00:37)
[2016-08-20] MEDS: DEXTROSE 5% LACTATED RINGERS 1,000 ML IV SCH ×2 (01:40→15:01)
[2016-08-20] MEDS: metroNIDAZOLE INJ 500 MG in PREMIX 1 EACH IV SCH ×4 (02:14→20:54)
[2016-08-20] MEDS: CLINDAMYCIN INJ 600 MG in PREMIX 1 EACH IV SCH ×4 (05:48→22:16)
[2016-08-20 07:17] LABS: Basophils % 0.7 % (0.0-0.8); Eosinophils # 0.1 10*3/uL (0.0-0.87); Eosinophils % 2.4 % (0.00-10.9); Hematocrit 34.2 VOL% (35.7-47.0); Hemoglobin 11.4 GM/DL (12.0-16.0); Immature Granulocytes % 2.1 %; Immature Granulocytes Absolute 0.09 #; Lymphocytes % 24.6 % (21.3-54.2); Mean Corpuscular HGB Conc 33.3 GM/DL (32-36); Mean Corpuscular Hemoglobin 33 PG (27-34); Mean Platelet Volume 9.9 FL (9.6-12.0); Monocytes # 0.4 10*3/uL (0.11-0.8); Monocytes % 9.7 % (1.7-12.7); Neutrophils # 2.6 10*3/uL (1.4-7.4); Neutrophils % 60.5 % (38.7-73.9); Platelet Count 166 T/CUMM (130-400); Red Blood Count 3.49 MC/CUMM (3.8-5.5); Red Cell Distribution Width 12.7 % (9.3-17.3); White Blood Count 4.2 T/CUMM (4-12)
[2016-08-20 07:50] LABS: Calcium 8.5 MG/DL (8.5-10.1); Osmolality,Calculated 277.4 MOS/KG (273-304); Potassium 4.4 MMOL/L (3.5-5.1)
--- NOTE | 2016-08-20 09:36 | General Surgery Progress Note ---
Assessment and Plan - Time spent with patient Time spent with patient: Less than 30 minutes (1) Abscess of right genital labia Status: Acute Assessment and plan: Impression: 1. Right labial abscess 2. Cellulitis of the pubis secondary to 1 Plan: 1. Will add a couple of antibiotics to her at this time 2. Plan to take her to surgery tomorrow for drainage. 08/14/2016 Patient is postop today for 1 day and we go to be starting wound care at this time. This is in a very difficult place to take care of & be a good deal of discomfort with each dressing change. We got irrigation lined up to get this process under control and get it cleaned so that we do not have to extend these incisions. Cultures are pending at this time. Patient lives alone and has no support so we are trying to arrange someplace for to go where she can get continued wound care at this point until we can get this healed up enough that we can simplify the care. 08/15/2016. Patient is doing fairly well beginning to handle the dressings little bit better. The wounds are fairly clean the erythematous changes on the pubis is somewhat better. Cultures are back and this is a staff and is not sensitive to the Zosyn so I will change him over to the Cleocin had a little Bactrim to home. Trying to get her somewhere where she can get some help with the wound care until he gets worried simpler to deal with as time goes on. 08/16/2016 Patient is afebrile wounds are looking better still little bit of redness on the suprapubic area with a little bit of swelling there but nothing to suggest any deep space infection present. She is struggling because of the difficulty of wound care in this particular area. It is complicated to deal with them were having trouble getting her to a place and can manage the wounds as well as help her with the wound care. After long discussion with the patient one option we might have since we have had a good course of antibiotics is to look at Friday to possibly take her to surgery to close the labial area possibly a different drain into the suprapubic area and attempt to drain this a little bit more effectively and possibly simplify the wound care. She seems to favor that because she feels like it might get her out where she can manage at home since she does live alone. We will go ahead and plan to set her up for surgery on Friday. 08/20/2016. Patient is now postop from the delayed closure of this labial wound with a drain in place. Plan at this time is to help her learn how to take care of this and see if she can manage this so this is a possibility that she may be able to go home with home health and handle this wound care until we get stitches out. Will start teaching her how to deal with this and I will to handle the NORA drainage at this time. Cultures are pending from the surgery at this point. Be looking at sending her home either tomorrow or depending on how she is doing how she is handling the wound care. Current Visit: Yes Subjective Patient reports: Present: feels better, pain is less, tolerating a regular diet , bowel movement, afebrile Exam - Constitutional Vitals: Period Temp Pulse Resp BP Sys/Brunner Pulse Ox Last 24 Hr 96.4 F-979.6 F 50-87 14-20 104-148/50-79 94-100 General appearance: mild distress - Head Head exam: Present: normal inspection - ENT ENT exam: Present: normal exam - Neck Neck exam: Present: normal inspection - Respiratory Respiratory exam: Present: clear to auscultation bilaterally, rales - Cardiovascular Cardiovascular exam: Present: RRR - GI/Abdominal GI/Abdominal exam: Present: normal bowel sounds, soft, other (Right labial and suprapubic wounds are clean and dry with drain in place) - Extremities Exam Extremities exam: Present: normal inspection - Neurological Exam Neurological exam: Present: alert, oriented X3, CN II-XII intact - Skin Skin exam: Present: normal color, warm, dry Results - Labs CBC & BMP: 08/20/16 07:06 08/20/16 07:06 Lab Results: I have reviewed the past 24 hour labs Quality Measures - VTE Contraindication to Pharmacological VTE Prophylaxis: High Risk of Bleeding
[2016-08-20] MEDS: LOSARTAN 50 MG TABLET PO SCH (09:37)
[2016-08-20] MEDS: SULFAMETHOX/TRIMETHOPRIM 800-160 MG TABLET PO SCH ×2 (09:37→20:53)
[2016-08-20] MEDS: ENOXAPARIN 40 MG/0.4 ML SYRINGE SUBCUT SCH (09:37)
[2016-08-20] MEDS: SODIUM HYPOCHLORITE 0.25% IRRIG 473 ML BOTTLE TOP SCH ×2 (09:38→20:49)
[2016-08-20] MEDS: PANTOPRAZOLE 40 MG TABLET PO SCH (09:38)
[2016-08-20] MEDS: NYSTATIN POWDER 15 GM BOTTLE TOP SCH ×2 (09:38→20:54)
[2016-08-20] MEDS: LOVASTATIN 20 MG TABLET PO SCH (09:38)
[2016-08-20] MEDS: BACITRACIN OINT 0.9 GM PACK TOP SCH ×2 (09:38→20:54)
[2016-08-21] MEDS: metroNIDAZOLE INJ 500 MG in PREMIX 1 EACH IV SCH ×2 (02:35→09:49)
[2016-08-21] MEDS: CLINDAMYCIN INJ 600 MG in PREMIX 1 EACH IV SCH (05:57)
[2016-08-21] MEDS: DEXTROSE 5% LACTATED RINGERS 1,000 ML IV SCH (05:58)
[2016-08-21] MEDS: SULFAMETHOX/TRIMETHOPRIM 800-160 MG TABLET PO SCH (09:47)
[2016-08-21] MEDS: DOXYCYCLINE HYCLATE 100 MG CAPSULE PO SCH ×2 (10:13→21:00)
[2016-08-21] MEDS: LOVASTATIN 20 MG TABLET PO SCH (10:13)
[2016-08-21] MEDS: LOSARTAN 50 MG TABLET PO SCH (10:13)
[2016-08-21] MEDS: PANTOPRAZOLE 40 MG TABLET PO SCH (10:13)
[2016-08-21] MEDS: SODIUM HYPOCHLORITE 0.25% IRRIG 473 ML BOTTLE TOP SCH ×2 (10:14→21:01)
[2016-08-21] MEDS: ENOXAPARIN 40 MG/0.4 ML SYRINGE SUBCUT SCH (10:14)
[2016-08-21] MEDS: BACITRACIN OINT 0.9 GM PACK TOP SCH ×2 (10:14→21:00)
[2016-08-21] MEDS: NYSTATIN POWDER 15 GM BOTTLE TOP SCH ×3 (10:14→21:00)
--- NOTE | 2016-08-21 16:10 | General Surgery Progress Note ---
Assessment and Plan - Time spent with patient Time spent with patient: Greater than 30 minutes (1) Abscess of right genital labia Status: Acute Assessment and plan: 08/21/16 Generally doing well from surgery standpoint, although she is a bit overwhelmed with the care involved. We will get wound nurses to come and simplify this process. Antibiotics have been adjusted to new cultures & switched to PO. Culture stools for C. dificile. We will still plan discharge to, [facility] with home health unless there are new problems. Current Visit: Yes Subjective Patient reports: Present: pain is less, diarrhea, other (Pt is tearful & ' overwhelmed with dressing changes'.) Exam - Constitutional Vitals: Period Temp Pulse Resp BP Sys/Brunner Pulse Ox Last 24 Hr 97.0 F-98.6 F 52-68 18-20 113-137/53-65 95-100 General appearance: mild distress - Skin Skin exam: Present: other (Perineal wound is clean and dry with no redness or swelling. Minimal NORA drainage. ) Results - Labs CBC & BMP: 08/20/16 07:06 08/20/16 07:06 Lab Results: I have reviewed the past 24 hour labs (Micro with new Gram positives and Morganella species.) - EKG EKG shows: bradycardia Quality Measures - VTE Contraindication to Pharmacological VTE Prophylaxis: High Risk of Bleeding
[2016-08-22] MEDS: PANTOPRAZOLE 40 MG TABLET PO SCH (09:51)
[2016-08-22] MEDS: ENOXAPARIN 40 MG/0.4 ML SYRINGE SUBCUT SCH (09:51)
[2016-08-22] MEDS: LOSARTAN 50 MG TABLET PO SCH (09:51)
[2016-08-22] MEDS: DOXYCYCLINE HYCLATE 100 MG CAPSULE PO SCH (09:51)
[2016-08-22] MEDS: LOVASTATIN 20 MG TABLET PO SCH (09:57)
[2016-08-22 11:32] VITALS: BP 128/70
--- NOTE | 2016-08-22 12:32 | Discharge Summary ---
Hospital Course - Time spent with patient Time with patient DS: Less than 30 minutes Diagnosis - Discharge Diagnosis (1) Abscess of right genital labia Status: Chronic Specialty Discharge - Follow Up or Referrals Follow up with: Ze Jorge MD [Physician] - 09/02/16 - Speciality Discharge Instructions Surgery Instructions: 1. Home health to help her with wound care they should see her every other day. 2. She needs daily wound care and as often as needed. 3. Needs to understand how to keep it could record of the amount of NORA drainage so that we know when to pull that drain. 4. We will need her to complete her present antibiotics at this time. Discharge Plan - Discharge Data Disposition: Home Health Service Condition at Discharge: Stable Discharge Diet: advance to your usual diet Activity: increase activity as tolerated, no lifting Hygiene: may shower Weight Bearing at Discharge: full weight bearing Driving: no restrictions Contact your physician if you experience:: fever over 101, Redness or swelling, Bleeding, pain uncontrolled by pain medications Wound / Dressing Care Instructions: Wound care to the right suprapubic wound, drain site, and right labial wound. Twice a day and as needed. 1. Shower and wash areas with Hibiclens. 2. Apply some bacitracin or triple antibiotic ointment to the incision and drain sites. 3. Cover drain sites and wounds with 4 x 4's and an ABD pad or perineal pad. 4. Change as often as needed for soiling all for increased moisture. - Discharge Medications New Acetaminophen Tab [Tylenol Tab] 650 mg PO Q6H PRN tablet PRN Reason: Pain Mild (1-3) Doxycycline Hyclate Cap [Vibramycin Cap] 100 mg PO BID #20 capsule HYDROcodone/ACETAMIN 5-325 [Aspen 5-325] 1 tablet PO Q6H PRN #20 tablet PRN Reason: Pain Mild To Moderate (1-7) Nystatin Powder [Mycostatin Powder] 1 applic TOP BID #1 bottle Continue prednisoLONE TAB [prednisoLONE Tab] 20 mg PO DAILY Lovastatin 20 mg PO DAILY Losartan [Cozaar] 100 mg PO DAILY cephALEXin [Cephalexin] 500 mg PO Q12HR - Follow Up or Referral - Forms/Instructions Exam - Constitutional Vitals: Period Temp Pulse Resp BP Sys/Brunner Pulse Ox Last 24 Hr 97.4 F-98.5 F 51-104 18-20 128-156/63-102 95-98 General appearance: mild distress - Head Head exam: Present: normal inspection - ENT ENT exam: Present: normal exam - Neck Neck exam: Present: normal inspection - Respiratory Respiratory exam: Present: clear to auscultation bilaterally - Cardiovascular Cardiovascular exam: Present: regular rate and rhythm - GI/Abdominal GI/Abdominal exam: Present: normal bowel sounds, soft, other (The wound in the right labial and suprapubic area are clean with no evidence of any recurrent abscess formation present. NORA drainage is minimal). Absent: tenderness - Extremities Exam Extremities exam: Present: normal inspection - Back Exam Back exam: Present: normal inspection - Neurological Exam Neurological exam: Present: alert, oriented X3, CN II-XII intact - Psychiatric Psychiatric exam: Present: normal affect, normal mood, anxious - Skin Skin exam: Present: normal color, warm, dry DS: Provider Date of admission: 08/12/16 17:28 Primary care physician: Hayde Edward DO Attending physician on admission: Hayde Edward DO Consults: 08/12/16 16:39 Consult to Physician [CONS] Routine Comment: labial abscess Consulting Provider: Ze Jorge Person Notified: ania Date Notified: 08/12/16 Time Notified: 17:00 Consult Notification Comment: spoke with dr. jorge about consult 08/12/16 19:06 Consult to Anesthesiology [CONS] Routine Consulting Provider: Reason for Anesthesiology: Pre-op Clearance Consult Comment: will need general 08/13/16 08:17 Consult to Wound Care [facility] [CONS] Routine Reason for Wound Care: Wound Care Management Consult Comment: Teach patient and family about wound care 08/13/16 08:23 Consult to Case Mgmt/Social Srvs [CONS] Routine Reason for Case Mgmt/Social Srvs: Discharge Planning Home Health Consult Comment: Home health for wound care 08/14/16 08:22 Consult to Case Mgmt/Social Srvs [CONS] Routine Reason for Case Mgmt/Social Srvs: Discharge Planning Swingbed/SNF/M[facility] Consult Comment: Swingbed at discharge for wound care 08/14/16 11:22 Consult to Physical Therapy [CONS] Routine Reason for Physical Therapy: Evaluate and Treat Start Therapy: Today 08/16/16 09:31 Consult to Anesthesiology [CONS] Routine Consulting Provider: Reason for Anesthesiology: Pre-op Clearance Consult Comment: general anesthesia Discharging clinician: Ze Jorge MD Expected date of discharge: 08/22/16
[2016-08-22] MEDS: BACITRACIN OINT 0.9 GM PACK TOP SCH (15:00)
[2016-08-22] MEDS: NYSTATIN POWDER 15 GM BOTTLE TOP SCH (15:00)
[2016-08-22] MEDS: SODIUM HYPOCHLORITE 0.25% IRRIG 473 ML BOTTLE TOP SCH (15:00)
== END 2016-08-22 16:43 | disposition home health service (06) | DRG 747 ==
LOC: N.2E 17:28
PROVIDERS: ADMIT Obstetrics & Gynecology; ATTEND Obstetrics & Gynecology